=== PATIENT | female | born 1975 | race Caucasian/White ===

== ENCOUNTER → 2017-01-28 | Outpatient (CLI) | payer OTHER ==
[2017-01-28 09:41] LABS: MEAN CELL VOLUME 90.9 fL (80-100); MEAN CORPUSCULAR HEMOGLOBIN 31.4 pg (25-34); MEAN CORPUSCULAR HGB CONC 34.5 g/dl (32-36); PLATELET COUNT 235 K/uL (130-400); RED BLOOD COUNT 4.62 M/uL (4.2-5.4); WHITE BLOOD COUNT 6.65 K/uL (4.8-10.8)
[2017-01-28 10:05] LABS: ALT/SGPT 20 U/L (12-78); BLOOD UREA NITROGEN 16 mg/dl (7-18); BUN/CREATININE RATIO 17.9 (10-20); CALCIUM 8.5 mg/dl (8.5-10.1); CARBON DIOXIDE 28 mmol/L (21-32); CHLORIDE 107 mmol/L (98-107); CHOLESTEROL 158 mg/dl (0-200); CREATININE 0.89 mg/dl (0.60-1.20); GLUCOSE 79 mg/dl (70-99); POTASSIUM 4.3 mmol/L (3.5-5.1); SODIUM 140 mmol/L (136-145); TRIGLYCERIDES 54 mg/dl (0-150); VERY LOW DENSITY LIPOPROT CALC 11 mg/dl
[2017-01-28 10:16] LABS: ALKALINE PHOSPHATASE 58 U/L (45-117); AST/SGOT 14 U/L (15-37); HDL CHOLESTEROL 80 mg/dl; LDL CHOLESTEROL CALCULATED 67 mg/dl
== END | disposition home or self-care (01) ==
LOC: C.LAB1850 07:07
PROVIDERS: ATTEND Nurse Practitioner Adult Health
DX: Z00.00 Encounter for general adult medical examination without abnormal findings (principal); K14.6 Glossodynia; R74.8 Abnormal levels of other serum enzymes; Z13.220 Encounter for screening for lipoid disorders; Z83.49 Family history of other endocrine, nutritional and metabolic diseases

== ENCOUNTER 2017-04-11 11:19 | Emergency (ER) | payer OTHER ==
[~2017-04-11] VITALS: Ht 170.2 cm; Wt 64.0 kg
[2017-04-11 11:24] VITALS: TEMP 37.1; Ht 170.2 cm; Wt 64.0 kg
--- NOTE | 2017-04-11 11:45 | EMERGENCY ROOM VISIT NOTE ---
History Report prepared by Gene: Joseph Miranda Under the Supervision of: Dr. Sissy Castaneda D.O. First contact with patient: 11:31 Chief Complaint: HEADACHE Stated Complaint: HEADACHE,ACHES AND PAIN History of Present Illness The patient is a 42 year old female who presents to the Emergency Room with complaints of persistent headache for the past three days. The patient also complains of joint pain and lower back pain. The patient's headache is described as severe. Ibuprofen takes the edge off of the pain. She is also photophobic and dizzy. The patient also describes intermittent diffuse abdominal pain and nausea last night. The patient denies cough or cold symptoms , chest pain, shortness of breath, abdominal distention, changes in bowel movements, or urinary symptoms. She does not feel like her joints are swollen. The patient was in [facility] about two weeks ago, and she had numerous insect bites. The bites healed well and there were no rashes. She does not have any sick contacts. The patient denies recent dietary or medication changes. She has been keeping up with fluids. The patient has no known medical problems. She does not have any known family history of rheumatalgic disease. Source of History: patient Onset: three days ago Position: head Symptom Intensity: severe Timing: other (persistent) Modifying Factors (Relieving): ibuprofen Associated Symptoms: + nausea, + abdominal pain, + back pain, No cough, No chest pain, No SOB, No diarrhea, No urinary symptoms, No rash Review of Systems See HPI for pertinent positives & negatives. A total of 10 systems reviewed and were otherwise negative. Past Medical & Surgical Medical Problems: (1) No known history of drug allergy Family History No pertinent family history Social History Smoking Status: Never Smoker Marital Status: Housing Status: lives with family Current/Historical Medications No Active Prescriptions or Reported Meds Allergies Coded Allergies: No Known Allergies (Unverified , 04/11/17) Physical Exam Vital Signs Date Time Temp Pulse Resp B/P (MAP) Pulse Ox O2 Delivery O2 Flow Rate FiO2 04/11/17 14:12 64 16 112/64 99 Room Air 04/11/17 13:31 62 16 118/63 100 Room Air 04/11/17 11:24 37.1 78 16 101/64 99 Room Air Physical Exam GENERAL: alert, well appearing, well nourished, no distress, non-toxic EYE EXAM: normal conjunctiva. OROPHARYNX: no exudate, no erythema, lips, buccal mucosa, and tongue normal and mucous membranes are moist NECK: supple, no nuchal rigidity, no adenopathy, non-tender LUNGS: Clear to auscultation. Normal chest wall mechanics HEART: no murmurs, S1 normal and S2 normal ABDOMEN: abdomen soft, non-tender, normo-active bowel sounds, no masses, no rebound or guarding. BACK: Back is symmetrical on inspection and there is no deformity, no midline tenderness, no CVA tenderness. SKIN: no rashes and no bruising UPPER EXTREMITIES: upper extremities are grossly normal. LOWER EXTREMITIES: No pitting edema. NEURO EXAM: Normal sensorium, cranial nerves II-XII grossly intact, normal speech, no gross weakness of arms, no gross weakness of legs. Gross sensation intact. Medical Decision & Procedures ER Provider Diagnostic Interpretation: Radiology results have been interpreted by the radiologist and reviewed by me. ULTRASOUND KIDNEYS AND BLADDER CLINICAL HISTORY: Back pain. Hematuria. COMPARISON STUDY: No priors. TECHNIQUE: Real-time, grayscale, and color flow sonography of the kidneys and bladder is performed. Images are reviewed in the transverse and longitudinal planes. FINDINGS: Kidneys: The kidneys are normal in size and echotexture. The right kidney measures 11.5 x 5.5 x 5.6 cm and the left kidney measures 12.4 x 6.9 x 5.7 cm. There is no hydronephrosis. There is minimal fullness of the right renal collecting system. No shadowing renal calculi are identified. There is no sonographic evidence of contour deforming renal mass lesion. No perinephric fluid is identified. Bladder: The bladder is normal in appearance. Bilateral ureteral jets were seen. IMPRESSION: Unremarkable sonographic assessment of the kidneys and bladder. Electronically signed by: Genaro Iniguez M.D. 04/11/2017 1:57 PM Dictated Date/Time: 04/11/2017 1:56 PM Laboratory Results 04/11/17 12:00 Red Blood Count 4.91, Mean Corpuscular Volume 91.4, Mean Corpuscular Hemoglobin 32.0, Mean Corpuscular Hemoglobin Concent 35.0, Mean Platelet Volume 9.5, Neutrophils (%) (Auto) 88.5, Lymphocytes (%) (Auto) 5.8, Monocytes (%) (Auto) 5.1, Eosinophils (%) (Auto) 0.1, Basophils (%) (Auto) 0.3, Neutrophils # (Auto) 8.52, Lymphocytes # (Auto) 0.56, Monocytes # (Auto) 0.49, Eosinophils # (Auto) 0.01, Basophils # (Auto) 0.03 04/11/17 12:00 Test 04/11/17 12:00 04/11/17 12:15 White Blood Count 9.63 K/uL (4.8-10.8) Red Blood Count 4.91 M/uL (4.2-5.4) Hemoglobin 15.7 g/dL (12.0-16.0) Hematocrit 44.9 % (37-47) Mean Corpuscular Volume 91.4 fL (80-100) Mean Corpuscular Hemoglobin 32.0 pg (25-34) Mean Corpuscular Hemoglobin Concent 35.0 g/dl (32-36) Platelet Count 157 K/uL (130-400) Mean Platelet Volume 9.5 fL (7.4-10.4) Neutrophils (%) (Auto) 88.5 % Lymphocytes (%) (Auto) 5.8 % Monocytes (%) (Auto) 5.1 % Eosinophils (%) (Auto) 0.1 % Basophils (%) (Auto) 0.3 % Neutrophils # (Auto) 8.52 K/uL (1.4-6.5) Lymphocytes # (Auto) 0.56 K/uL (1.2-3.4) Monocytes # (Auto) 0.49 K/uL (0.11-0.59) Eosinophils # (Auto) 0.01 K/uL (0-0.5) Basophils # (Auto) 0.03 K/uL (0-0.2) RDW Standard Deviation 42.7 fL (36.4-46.3) RDW Coefficient of Variation 12.7 % (11.5-14.5) Immature Granulocyte % (Auto) 0.2 % Immature Granulocyte # (Auto) 0.02 K/uL (0.00-0.02) Urine Color DK YELLOW Urine Appearance CLOUDY (CLEAR) Urine pH 6.0 (4.5-7.5) Urine Specific Richey 1.025 (1.000-1.030) Urine Protein 1+ (NEG) Urine Glucose (UA) NEG (NEG) Urine Ketones 3+ (NEG) Urine Occult Blood 2+ (NEG) Urine Nitrite NEG (NEG) Urine Bilirubin NEG (NEG) Urine Urobilinogen NEG (NEG) Urine Leukocyte Esterase NEG (NEG) Urine WBC (Auto) 1-5 /hpf (0-5) Urine RBC (Auto) 0-4 /hpf (0-4) Urine Hyaline Casts (Auto) 1-5 /lpf (0-5) Urine Epithelial Cells (Auto) >30 /lpf (0-5) Urine Bacteria (Auto) 1+ (NEG) Urine Renal Epithelial Cells /lpf (0-5) Urine Mucus PRESENT (NONE PRSENT) Urine Yeast (Auto) (NONE PRSENT) Anion Gap 11.0 mmol/L (3-11) Est Creatinine Clear Calc Drug Dose 63.5 ml/min Estimated GFR () 70.7 Estimated GFR (Non- 61.0 BUN/Creatinine Ratio 9.7 (10-20) Calcium Level 8.6 mg/dl (8.5-10.1) Magnesium Level 2.4 mg/dl (1.8-2.4) Total Bilirubin 0.4 mg/dl (0.2-1) Aspartate Amino Transf (AST/SGOT) 18 U/L (15-37) Alanine Aminotransferase (ALT/SGPT) 20 U/L (12-78) Alkaline Phosphatase 67 U/L (45-117) Total Creatine Kinase 58 U/L (26-192) Total Protein 7.4 gm/dl (6.4-8.2) Albumin 3.4 gm/dl (3.4-5.0) Globulin 4.0 gm/dl (2.5-4.0) Albumin/Globulin Ratio 0.9 (0.9-2) Thyroid Stimulating Hormone (TSH) 0.397 uIu/ml (0.300-4.500) Human Chorionic Gonadotropin, Qual NEG (NEG) Salicylates Level < 1.7 mg/dl (2.8-20) Acetaminophen Level 2 ug/ml (10-30) Lyme Disease IgG Antibody NEG (NEG) Lyme Disease IgM Antibody NEG (NEG) Influenza Type A Antigen Neg for Influ A (NEG) Influenza Type B Antigen Neg for Influ B (NEG) Date/Time Source Procedure Growth Status 04/11/17 12:00 Urine , Clean Catch Urine Culture - Final MORE THAN THREE TYPES OF ORGANISMS IA... Complete Laboratory results per my review. Medications Administered Medications (Trade) Dose Ordered Sig/Jaun Route Start Time Stop Time Status Last Admin Dose Admin Sodium Chloride 1,000 ml @ 999 mls/hr Q1H1M STAT IV 04/11/17 11:47 04/11/17 12:47 DC 04/11/17 12:10 999 MLS/HR ECG Indication: abdominal pain Rate (beats per minute): 59 Rhythm: sinus bradycardia Findings: no acute ischemic change, no ectopy, other (normal axis, normal intervals) ED Course 1140: The patient was evaluated in room B12b. A complete history and physical exam was performed. 1145: Per CDC guidelines, there are no new travel noticed for [facility]. 1147: NSS 1000 ml @ 999 ms/hr. 1308: Reassessed the patient. She is hungry and would like something to eat. I updated her with the workup so far. 1450: Reassessed the patient. Discussed the findings with her. She verbalized understanding and agreement with the treatment plan. The patient is ready for discharge. Medical Decision Differential diagnosis: Etiologies such as migraine headache, meningitis, sinusitis, CO exposure, ICH, SAH, infection, tumor, headache, sinus thrombosis, arterial dissection, as well as others were entertained. Medication Reconciliation: I attest that I have personally reviewed the patient' s current medication list. Blood pressure screening: Patient was found to have normal blood pressure on screening and does not require follow-up. Pt well appearing here despite complaints. VS stable. Labs negative. Doubt meningitis/encephalitis. Possible viral syndrome. Also discussed possible manifestation of rheumatologic disorder. Pt denied focal pain or complaints, was asking to eat. Mild hematuria noted and renal US reassuring. No evidence of obstruction or infection. Discussed recheck with PCP and possible urology evaluation. Discussed only CDC travel advisory to [facility] was for possible Zika exposure. Pt not currently . Discussed possible transmission to sexual partner if possible, however otw supportive treatment. DIscussed sx to watch/return for, she verbalized understanding and was agreeable with plan. Impression Primary Impression: Myalgia Additional Impressions: Headache Hematuria Scribe Attestation The scribe's documentation has been prepared under my direction and personally reviewed by me in its entirety. I confirm that the note above accurately reflects all work, treatment, procedures, and medical decision making performed by me. Departure Information Dispostion Home / Self-Care Prescriptions No Active Prescriptions or Reported Meds Referrals Toma Carrington C.R.N.P. (PCP) Forms HOME CARE DOCUMENTATION FORM, IMPORTANT VISIT INFORMATION Patient Instructions My [facility] Additional Instructions Please call and follow-up with her family doctor regarding her symptoms. You may use Tylenol and ibuprofen in alternating fashion to help with her aches and pains. Please make sure you're drinking plenty of water. Please have your family doctor recheck your urine to see if there is still blood, small amount of blood was noted today. If the blood persist, your family doctor would likely refer you to urology. If you develop any worsening pain, increased headache, notice gross blood in your urine, have trouble breathing, vomiting, diarrhea, or you have any other new concerns, please return the emergency room. Problem Qualifiers Additional Impressions: Headache Headache type: unspecified Headache chronicity pattern: unspecified pattern Intractability: not intractable Qualified Codes: R51 - Headache
[2017-04-11] MEDS ORDERED: SODIUM CHLORIDE 0.9% 1000ML 1,000 ML IV STA (11:47)
[2017-04-11 12:12] LABS: BASO % 0.3 %; BASO ABS # 0.03 K/uL (0-0.2); COMPLETE YES; EOS % 0.1 %; HEMATOCRIT 44.9 % (37-47); IG% 0.2 %; LYMPH % 5.8 %; LYMPH ABS # 0.56 K/uL (1.2-3.4); MEAN CELL VOLUME 91.4 fL (80-100); MEAN PLATELET VOLUME 9.5 fL (7.4-10.4); MONO % 5.1 %; NEUT % 88.5 %; PLATELET COUNT 157 K/uL (130-400); RED BLOOD COUNT 4.91 M/uL (4.2-5.4); WHITE BLOOD COUNT 9.63 K/uL (4.8-10.8)
[2017-04-11 12:33] LABS: PREG INTERNAL NEGATIVE QC NEG CLEAR BACKGROUND; PREG INTERNAL POSITIVE QC POS CONTROL LINE
[2017-04-11 12:36] LABS: BUN/CREATININE RATIO 9.7 (10-20); CALCIUM 8.6 mg/dl (8.5-10.1); CREATININE 1.1 mg/dl (0.60-1.20)
[2017-04-11 12:40] LABS: POTASSIUM 4.5 mmol/L (3.5-5.1)
[2017-04-11 12:42] LABS: ALB/GLOB RATIO 0.9 (0.9-2); THYROID STIMULATING HORMONE 0.397 uIu/ml (0.300-4.500)
[2017-04-11 12:45] LABS: MAGNESIUM 2.4 mg/dl (1.8-2.4)
[2017-04-11 12:47] LABS: ACETAMINOPHEN 2 ug/ml (10-30)
[2017-04-11 12:57] LABS: URINE APPEARANCE CLOUDY (CLEAR); URINE COLOR DK YELLOW; URINE EPITHELIAL CELL AUTO >30 /lpf (0-5); URINE NITRITE NEG (NEG); URINE SPECIFIC GRAVITY 1.025 (1.000-1.030); UROBILINOGEN NEG (NEG); ZZUR CULT IF INDIC CLEAN CATCH YES
[2017-04-11 13:00] LABS: MANUAL MICROSCOPIC REQUIRED? NO; REVIEW REQ? YES; URINE BILIRUBIN NEG (NEG)
[2017-04-11 13:02] LABS: LYME DISEASE AB IGG NEG (NEG); LYME DISEASE AB IGM NEG (NEG)
[2017-04-11 13:06] LABS: URINE MUCUS PRESENT (NONE PRSENT)
--- NOTE | 2017-04-11 13:58 | DIAGNOSTIC IMAGING REPORT ---
ULTRASOUND KIDNEYS AND BLADDER CLINICAL HISTORY: Back pain. Hematuria. COMPARISON STUDY: No priors. TECHNIQUE: Real-time, grayscale, and color flow sonography of the kidneys and bladder is performed. Images are reviewed in the transverse and longitudinal planes. FINDINGS: Kidneys: The kidneys are normal in size and echotexture. The right kidney measures 11.5 x 5.5 x 5.6 cm and the left kidney measures 12.4 x 6.9 x 5.7 cm. There is no hydronephrosis. There is minimal fullness of the right renal collecting system. No shadowing renal calculi are identified. There is no sonographic evidence of contour deforming renal mass lesion. No perinephric fluid is identified. Bladder: The bladder is normal in appearance. Bilateral ureteral jets were seen. IMPRESSION: Unremarkable sonographic assessment of the kidneys and bladder. Electronically signed by: Genaro Iniguez M.D. 04/11/2017 1:57 PM Dictated Date/Time: 04/11/2017 1:56 PM
[2017-04-11 14:12] VITALS: BP 112/64; PULSE 64; O2SAT 99
== END 2017-04-11 14:40 | disposition home or self-care (01) ==
LOC: C.EDB 11:21
DX: M79.1 Myalgia (principal); R51 Headache; R31.9 Hematuria, unspecified

== ENCOUNTER → 2017-04-14 | Outpatient (CLI) | payer OTHER ==
[2017-04-14 18:01] LABS: URINE APPEARANCE CLEAR (CLEAR); URINE BILIRUBIN NEG (NEG); URINE COLOR YELLOW; URINE NITRITE NEG (NEG); URINE SPECIFIC GRAVITY 1.025 (1.000-1.030); UROBILINOGEN NEG (NEG)
[2017-04-14 18:12] LABS: MANUAL MICROSCOPIC REQUIRED? NO; REVIEW REQ? NO
== END | disposition home or self-care (01) ==
LOC: C.LABSPEC 17:28
PROVIDERS: ATTEND Nurse Practitioner Adult Health
DX: R31.29 Other microscopic hematuria (principal)

== ENCOUNTER → 2017-09-01 | Outpatient (CLI) | payer OTHER | END | disposition home or self-care (01) | LOC: C.PATHSPEC 16:44 | PROVIDERS: ATTEND Dermatology | DX: B07.9 Viral wart, unspecified (principal) ==

== ENCOUNTER → 2017-09-27 | Outpatient (CLI) | payer OTHER ==
--- NOTE | 2017-09-27 14:14 | DIAGNOSTIC IMAGING REPORT ---
THYROID ULTRASONOGRAPHY CLINICAL HISTORY: R22.1 Sensation of lump in [id number] COMPARISON STUDY: No previous studies for comparison. FINDINGS: The right lobe of thyroid measures 5.3 x 1.6 x 1.5 cm. The left lobe of thyroid measures 5.5 x 1.7 x 1.8 cm. Thyroid gland is slightly heterogeneous in appearance. There is an equivocal isoechoic 14 x 11 x 8 mm nodule in the right. On the left, there is a minimally hypoechoic spongiform nodule measuring 8 x 6 x 6 mm. Additional tiny nodules are delineated. IMPRESSION: Multinodular thyroid gland. None of the nodules demonstrate suspicious architectural features. Electronically signed by: Khurram Delaney M.D. 09/27/2017 2:12 PM Dictated Date/Time: 09/27/2017 2:10 PM
== END | disposition home or self-care (01) ==
LOC: C.ULTR 13:33
PROVIDERS: ATTEND Nurse Practitioner Adult Health
DX: E04.2 Nontoxic multinodular goiter (principal)

== ENCOUNTER → 2017-12-02 | Outpatient (CLI) | payer OTHER ==
[2017-12-02 14:53] LABS: POTASSIUM 4.1 mmol/L (3.5-5.1)
[2017-12-02 15:09] LABS: THYROXINE (T4) 6.8 mcg/dl (4.5-10.9)
[2017-12-06 12:57] LABS: MICROSOMAL AB 1 IU/ML (<9)
== END | disposition home or self-care (01) ==
LOC: C.LAB1850 12:32
PROVIDERS: ATTEND Physician Assistant
DX: E04.1 Nontoxic single thyroid nodule (principal); R31.9 Hematuria, unspecified